=== PATIENT | female | born 1985 | race Two or more races ===

== ENCOUNTER 2024-12-10 19:57 | Emergency (ER) | payer OTHER ==
[~2024-12-10] VITALS: Ht 162.6 cm; Wt 54.4 kg
[2024-12-10] MEDS ORDERED: TETANUS & DIPHTHERIA TOX,ADULT 0.5 ML VIAL IM STA (23:56)
[2024-12-11] MEDS ORDERED: DIPHTH,PERTUSS(ACELL),TET VAC 0.5 ML SYRINGE IM ONE (00:04)
== END 2024-12-11 00:14 | disposition home or self-care (01) ==
LOC: ER 19:58
DX: Z20.89 Contact with and (suspected) exposure to other communicable diseases (principal); R53.81 Other malaise
CPT/HCPCS: 90471; 90714; 96372; J1670